=== PATIENT | female | born 1975 | race Caucasian/White ===

== ENCOUNTER 2020-12-01 07:36 | Emergency (ER) | payer BC, MEDICAID ==
[~2020-12-01] VITALS: Ht 167.6 cm; Wt 85.0 kg
[2020-12-01] MEDS ORDERED: LORazepam 2 MG/ML, 1ML IVPush ONE (08:00)
[2020-12-01] MEDS ORDERED: LORazepam 2 MG/ML, 1ML ONE (08:30)
[2020-12-01 08:34] LABS: BASOPHILS % (AUTO) 1 % (0-1); EOSINOPHILS % (AUTO) 2 % (1-7); LYMPHOCYTES % (AUTO) 14 % (22-44); MEAN CORPUSCULAR HEMOGLOBIN 31.2 pg (27.0-34.8); MEAN CORPUSCULAR HGB CONC 33.7 g/dL (32.4-35.8); MEAN PLATELET VOLUME 8.4 fL (7.4-10.4); MONOCYTES % (AUTO) 5 % (2-9); NEUTROPHILS % (AUTO) 80 % (42-75); PLATELET COUNT 210 x10^3/uL (130-400); RED BLOOD COUNT 4.39 x10^6/uL (3.82-5.3); RED CELL DISTRIBUTION WIDTH 14.4 % (9.6-15.2)
[2020-12-01 08:39] LABS: ALBUMIN 3.5 g/dL (3.4-5.0); ANION GAP 5 mmol/L (5-15); CALCIUM 8.7 mg/dL (8.5-10.1); CHLORIDE 105 mmol/L (98-107); CREATININE 0.86 mg/dL (0.55-1.02)
--- NOTE | 2020-12-01 08:41 | NUR ---
PT CAME IN [place] RIGHT SIDE FACIAL NUMBNESS, VALDOVINOS, AND BLURRY VISION IN RIGHT EYE. "I WOKE UP AT AROUND 0430 WITH THESE SYMPTOMS". HX OF STROKE - SAYS IT FEELS THE SAME. PT RECEIVED 4MG ZOFRAN FRY COOK. EKG COMPLETED. RESTING IN RNORTH FREEDOM CONNECTED TO ALL MONITIORING EQUIPMENT
[2020-12-01 10:26] VITALS: BP 132/70
== END 2020-12-01 10:29 | disposition home or self-care (01) ==
LOC: ED 08:25
DX: R20.2 Paresthesia of skin (principal); R42 Dizziness and giddiness; R51.9 Headache, unspecified; R07.89 Other chest pain
CPT/HCPCS: 36415; 70450; 80048; 82040; 85025; 93005; 96374; 99285; J2060